=== PATIENT | male | born 2000 | race African-American/Black ===

== ENCOUNTER 2021-12-20 16:31 | Outpatient (CLI) | payer OTHER ==
--- NOTE | 2021-12-21 09:23 | XRAY Report ---
PROCEDURE: Wrist 3 View LT INDICATIONS: PAIN IN LEFT WRIST TECHNIQUE: 3 views of the wrist were acquired. COMPARISON: None FINDINGS: Bones: No fractures or dislocations. No suspicious bony lesions. Scaphoid view: Normal Soft tissues: No suspicious soft tissue calcifications. IMPRESSION: Normal left wrist Reviewed by: Dany Garcia on 12/21/2021 9:22 AM PDT Approved by: Dany Garcia on 12/21/2021 9:22 AM PDT Station ID: [id number]
== END 2021-12-20 16:32 | disposition home or self-care (01) ==
LOC: DI 16:31
PROVIDERS: ATTEND Registered Nurse
DX: M25.532 Pain in left wrist (principal)